=== PATIENT | female | born 1990 | race Caucasian/White ===

== ENCOUNTER → 2019-06-03 | Outpatient (CLI) | payer OTHER ==
--- NOTE | 2019-06-03 13:29 | RAD ---
EXAM: Right shoulder, 3 views. HISTORY: Pain. COMPARISON: None. FINDINGS: 3 views of the right shoulder obtained. There is no fracture, dislocation or subluxation. IMPRESSION: No acute osseous finding. Electronically signed by: Iris Evans MD (06/03/2019 1:25 PM) [place] [id number]
== END | disposition home or self-care (01) ==
LOC: PMG 10:35
PROVIDERS: ATTEND Registered Nurse
DX: M25.511 Pain in right shoulder (principal)
CPT/HCPCS: 73030